=== PATIENT | male | born 1945 | race Caucasian/White ===

== ENCOUNTER → 2017-11-25 11:58 | Outpatient (CLI) | payer MEDICARE, SELFPAY ==
--- NOTE | 2017-11-25 12:12 | XR_ITS ---
XR chest 2V HISTORY: ITS.REASON: DYSPNEA ON EXERTION ORDERING PHYSICIAN: Braydon Edwards MD PATIENT AGE: 72 years COMPARISON: 10/23/2014 FINDINGS: The heart size is unremarkable. There is mild prominence of the aortic knob unchanged. No lobar consolidation or collapse. No evidence of pneumothorax. There is minimal left apical pleural thickening. IMPRESSION: No acute finding
== END ==
PROVIDERS: PCP Family Medicine; Visit Provider Family Medicine
DX: R06.09 Other forms of dyspnea (principal)
CPT/HCPCS: 71046

== ENCOUNTER → 2017-12-29 06:41 | Outpatient (CLI) | payer MEDICARE, SELFPAY ==
--- NOTE | 2017-12-29 06:46 | NM_ITS ---
CARDIOLITE SPECT MYOCARDIAL PERFUSION SCAN, REST AND STRESS: EXERCISE STRESS [facility] REVIEW QGS EF AND WALL MOTION EVALUATION: QPS - PERFUSION EVALUATION HISTORY: SOB DOSE: 10.53 mCi technetium 99m mibi intravenously at rest followed by 32.3 mCi technetium 99m mibi following the intravenous ministration of 0.4 mg of Lexiscan. Resting blood pressure is 147/80. Stress blood pressure 161/81. FINDINGS: Ejection fraction is calculated to be 66%. SPECT images: Uniform myocardial activity with both stress and rest gated images calculated ejection fraction of 68% with normal wall motion IMPRESSION: No scintigraphic evidence of Lexiscan-induced myocardial ischemia. Normal ejection fraction normal wall motion
--- NOTE | 2017-12-29 07:21 | HMH.ITSHM ---
TAMSULOSIN DIAXEPAM HYDROCODON
== END ==
PROVIDERS: PCP Family Medicine; Visit Provider Family Medicine
DX: R06.02 Shortness of breath (principal)
CPT/HCPCS: 78452; 93017; A9502; J2785

== ENCOUNTER 2018-09-21 11:47 | Outpatient (RCR) | payer MEDICARE, SELFPAY | END 2018-09-21 11:50 | disposition home or self-care (01) | LOC: PT 11:47 | PROVIDERS: Visit Provider Orthopaedic Surgery | DX: M25.561 Pain in right knee (principal) ==

== ENCOUNTER → 2018-10-01 09:27 | Outpatient (CLI) | payer MEDICARE, SELFPAY ==
--- NOTE | 2018-10-01 09:44 | XR_ITS ---
XR knee RT 4V HISTORY: ITS.REASON: RT KNEE PAIN ORDERING PHYSICIAN: Darlene Avila MD PATIENT AGE: 73 years COMPARISON: Right knee 09/19/2018 FINDINGS: Again noted is a semiopaque encircling structure with metallic pins posterior some type of both surrounding the lower portion leg which extends off the lower [id number]. There is spurring the tibial spines with mild joint space narrowing medially and laterally. The patella is intact and I see no definite effusion. No fracture or dislocation. No lytic or blastic change. Normal mineralization. No other significant findings IMPRESSION: Stable mild degenerative changes of the knee
== END ==
PROVIDERS: PCP Family Medicine; Visit Provider Orthopaedic Surgery
DX: M25.561 Pain in right knee (principal)
CPT/HCPCS: 73564

== ENCOUNTER 2019-02-17 13:10 | Outpatient (RCR) | payer MEDICARE, SELFPAY ==
--- NOTE | 2019-02-17 14:18 | HMH.PTOPEV ---
PT Outpatient Evaluation Rehab PT Outpatient Evaluation Start: 02/17/19 13:21 Freq: Status: Active Protocol: Document 02/17/19 14:05 PHOLASHELL (Rec: 02/17/19 14:18 PHORNE [id number]) Electronically Signed By Gary Leggett, PT 02/17/19 14:05 Outpatient Therapy Subjective History Subjective History Pt is 73 yowm who presents with c/o pain in the right knee x ~ 3-4 mos, worse with weight bearing, with insidious onset of symptoms. He reports no pain with sitting and no numbness. 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 He reports originally having full right side hemiparesis with the strength in his arm returning, but not the leg. he wears a custom built shoe with dorsiflexion assist AFO and ambulates with a quad cane. He has significant hip hiking during swing phase of gait to advance the right LE and knee hyperextension in stance phase of gait. He also has OA of the right knee per X-ray. He reports no other significant PMH. Chief Complaint Pain Symptom Type Sharp,Stabbing Symptoms Relieved By Rest/Positioning Symptoms Aggravated By Standing,Walking Prior Functional Limitations Driving,Standing,Walking Current Functional Limitations Driving,Standing,Walking Symptom Description Activity Dependent Level of pain today (0-10) 0 Pain scale - at its worst (0-10) 8 Hip/Knee Eval Gait Observation General Gait Pattern Observation Decrease Stride Lngth (R) Palpation Tenderness right Knee Palpation Finding Tenderness Knee Palpation Overall Comment posterior lateral knee at hams insertion MMT Hip Flexion Strength Grade 1 Trace Hip Abduction Strength Grade 1 Trace Hip Adduction Strength Grade 1 Trace Hip Extension Strength Grade 1 Trace Knee Extension Strength Grade 2- Poor- Knee Flexion Strength Grade 0 Zero ROM bilateral Hip ROM Reason Not Measured Within Functional Limits Knee ROM Reason Not Measured Within Functional Limits DTR Rt Patellar 2+ Lt Patellar
== END 2019-02-17 13:15 | disposition home or self-care (01) ==
LOC: PT 13:10
PROVIDERS: Visit Provider Orthopaedic Surgery
DX: M25.561 Pain in right knee (principal)
CPT/HCPCS: 97110; 97163

== ENCOUNTER → 2020-05-21 10:22 | Outpatient (CLI) | payer MEDICARE, SELFPAY ==
--- NOTE | 2020-05-21 10:28 | XR_ITS ---
PROCEDURE: XR KNEE RT 4V CLINICAL INDICATION: RT knee Pain and swelling COMPARISON: CR [id number] XR knee RT 3V from 09/19/2018 CR [id number] XR knee RT 4V from 10/01/2018 FINDINGS: No fracture or dislocation. No lytic or blastic change. There is normal mineralization. There are mild osteoarthritic changes of the lateral compartment Other findings:None. IMPRESSION: Mild osteoarthritis lateral compartment otherwise negative Dictated by: Jarrett Miranda MD 05/21/2020 13:00 Jarrett Miranda MD in [place] 05/21/2020 13:00
== END ==
PROVIDERS: PCP Family Medicine; Visit Provider Podiatrist
DX: M25.561 Pain in right knee (principal)
CPT/HCPCS: 73564

== ENCOUNTER 2023-10-30 11:15 | Outpatient (CLI) | payer MEDICARE, SELFPAY ==
--- NOTE | 2023-10-30 11:32 | ECG_ITS ---
APPROVED REPORT Exam: Resting ECG HR:84 bpm ECG Measurements Heart Rate 84 AXES ND 186 P 49 QRSd 85 QRS 71 QT 336 T 40 QTc 377 Conclusion SINUS RHYTHM LOW QRS VOLTAGE IN PRECORDIAL LEADS [QRS DEFLECTION < 1.0 mV IN CHEST LEADS] POSSIBLE INFERIOR MYOCARDIAL INFARCTION , PROBABLY OLD [30 ms Q WAVE IN II/aVF] BORDERLINE ECG UNCONFIRMED REPORT Electronically signed by : Braydon Benavides MD 10/31/2023 13:40:54
[2023-10-30 12:31] LABS: Basophils # 0.1 K/mm3 (0-0.2); Basophils % 0.6 % (0.1-2.0); Eosinophils # 0.1 K/mm3 (0.0-0.4); Eosinophils % 0.9 % (0.1-12.0); Hematocrit 46.9 % (42.0-52.0); Hemoglobin 15.5 g/dL (14.1-18.0); Lymphocytes # 2.8 K/mm3 (0.7-4.5); Lymphocytes % 18.2 % (10-50); Mean Corpuscular Hemoglobin 28.6 pg (27.0-31.2); Mean Corpuscular Volume 86.8 fl (80-94); Mean Platelet Volume 7.3 fl (7.4-10.4); Monocytes # 0.8 K/mm3 (0.1-1.0); Monocytes % 4.9 % (1.7-9.3); Neutrophils # 11.4 K/mm3 (1.8-7.8); Neutrophils % 75.4 % (37.0-80.0); Platelet Count 237 K/mm3 (142-424); Red Blood Count 5.41 M/mm3 (4.60-6.20); Red Cell Distribution Width 14.6 % (11.5-17.5); White Blood Count 15.1 K/mm3 (4.8-10.8)
[2023-10-30 12:44] LABS: MANUAL DIFFERENTIAL MANUAL DIFFERENTIAL (MANUAL DIFF)
[2023-10-30 13:15] LABS: Alanine Aminotransferase 18 U/L (12-78); Albumin/Globulin Ratio 1.3 (1.1-1.8); Alkaline Phosphatase 97 U/L (38-126); Anion Gap 12.1 mEq/L (5-15); Aspartate Amino Transferase 24 U/L (17-59); Bilirubin,Total 1.1 mg/dl (0.2-1.3); Blood Urea Nitrogen 15 mg/dl (9-20); Carbon Dioxide 28 mmol/L (22.0-30.0); Chloride 102 mmol/L (98-107); Estimated Glomerular Filt Rate 58 ml/min (>60); GFR (African American) 70 ML/MIN (>60); Glucose 123 mg/dl (74-100); Potassium 4.1 mmoL/L (3.5-5.1); Sodium 138 mmol/L (136-145)
[2023-10-30 13:39] LABS: Lymphocytes % 15 % (10-50); Monocytes % 10 % (2-9); Neutrophils % 74 % (42-76); Total Cells Counted 100
[2023-10-30 13:49] LABS: Platelet Estimate Normal; RBC Morphology Normal
== END 2023-10-30 23:59 ==
LOC: LAB 11:18
PROVIDERS: PCP Family Medicine; Visit Provider Ophthalmology
DX: Z01.818 Encounter for other preprocedural examination (principal)
CPT/HCPCS: 36415; 80053; 85007; 85025; 93005

== ENCOUNTER 2024-09-06 13:54 | Outpatient (CLI) | payer MEDICARE, SELFPAY ==
[2024-09-06 14:25] LABS: Basophils # 0.1 K/mm3 (0-0.2); Basophils % 0.8 % (0.1-2.0); Eosinophils # 0.1 K/mm3 (0.0-0.4); Hematocrit 48.7 % (42.0-52.0); Lymphocytes # 3.3 K/mm3 (0.7-4.5); Lymphocytes % 23.9 % (10-50); Mean Corpuscular Hemoglobin 28.8 pg (27.0-31.2); Mean Corpuscular Volume 87.4 fl (80-94); Mean Platelet Volume 7.2 fl (7.4-10.4); Monocytes # 0.7 K/mm3 (0.1-1.0); Monocytes % 5.3 % (1.7-9.3); Neutrophils # 9.5 K/mm3 (1.8-7.8); Platelet Count 252 K/mm3 (142-424); Red Blood Count 5.57 M/mm3 (4.60-6.20); Red Cell Distribution Width 15.2 % (11.5-17.5); White Blood Count 13.7 K/mm3 (4.8-10.8)
[2024-09-06 14:27] LABS: Chloride 103 mmol/L (98-107)
[2024-09-06 14:28] LABS: Potassium 3.6 mmoL/L (3.5-5.1); Sodium 139 mmol/L (136-145)
[2024-09-06 14:30] LABS: Blood Urea Nitrogen 16 mg/dl (9-20); Estimated Glomerular Filt Rate 49 ml/min (>60); GFR (African American) 59 ML/MIN (>60)
[2024-09-06 14:31] LABS: Anion Gap 11.6 mEq/L (5-15); Carbon Dioxide 28 mmol/L (22.0-30.0); Glucose 68 mg/dl (74-100)
--- NOTE | 2024-09-06 14:42 | ECG_ITS ---
APPROVED REPORT Exam: Resting ECG HR:83 bpm ECG Measurements Heart Rate 83 AXES QRSd 101 QRS 37 QT 357 T 19 QTc 397 Conclusion SUPRAVENTRICULAR RHYTHM ABNORMAL RHYTHM ECG UNCONFIRMED REPORT Electronically signed by : Braydon Benavides MD 09/07/2024 20:55:32
== END 2024-09-06 23:59 | disposition home or self-care (01) ==
LOC: PREOP 13:56
PROVIDERS: PCP Family Medicine; Visit Provider Surgery
DX: Z01.810 Encounter for preprocedural cardiovascular examination (principal); L98.9 Disorder of the skin and subcutaneous tissue, unspecified; I49.9 Cardiac arrhythmia, unspecified; R94.31 Abnormal electrocardiogram [ECG] [EKG]
CPT/HCPCS: 80048; 85025; 93005

== ENCOUNTER 2024-09-12 07:13 | Day surgery (SDC) | payer MEDICARE, SELFPAY ==
[2024-09-06 14:13] VITALS: BMI 27.3
[2024-09-12] VITALS (8 sets, daily range): BP systolic 115–132; BP diastolic 47–79; PULSE 61–89; RESP 16–18; TEMP 36.1–36.6; O2SAT 90–94
[2024-09-12] MEDS: 0.9 % SODIUM CHLORIDE 1000ML 1,000 ML 25 ML IV (07:27)
--- NOTE | 2024-09-12 07:51 | EXP.ANES.CKL ---
[facility] Disclaimer: The information contained in this section may have been updated after the patient was seen, as this information can be updated by other users. Medical History History of paralysis History of cerebral aneurysm History of cataract Anxiety Hip pain Enlarged prostate Surgical History History of shoulder surgery History of appendectomy History of hip replacement Family History Other No significant family history Social History Smoking Status: Never smoker alcohol intake: never substance use type: denies use current occupational status: retired Travel in the last 8 weeks: None household members: spouse housing: house [facility] Anesthesia Checklist Patient Identification Patient Identification: Arm Band, Family and Verbal (Name & ) Structural Data Admitted From: Home Planned Operative Procedure/s: Excision of skin lesion on back Consent for Planned Operative Procedure(s) Verified: Yes Verified Documents: Surgical Consent and History and Physical NPO Status Verified Time NPO: 21:00 Chart Verification Results Verified: CBC, BMP, ECG and Chest Xray Additional verifications Patient : No Anesthesia Reactions: No Hx Blood Transfusions: No Blood Transfusion Reaction: No Cardiovascular Assessment Heart Sounds: S1 & S2 Pulse Rhythm: Irregular Peripheral Edema: No Airway Assessment Mallampati Score:: Class II C-Spine Mobility Assessed: Yes (FROM) TMJ Mobility Assessed: Yes Dentition: Dentures-good fit (Nothing loose per pt.) Neurological Assessment Level of Consciousness: Awake, Alert, Appropriate and Follows Commands Hx Seizures: No Numbness or tingling in extremities: Yes (+Right Leg paralysis d/t cerebral aneurysm rupture 50 y/a) Anesthesia Plan Anesthesia Risk discussed: Yes Anesthesia Plan: Verified ASA Class: III Anesthesia Type: General
[2024-09-12] MEDS: LEVALBUTEROL 1.25MG/3ML NEB 1.25 MG IH (08:07)
[2024-09-12] MEDS: LIDOCAINE 1% 20ML MDV 20 ML (08:37)
[2024-09-12] MEDS: ROPIVACAINE 0.5% 30ML VIAL 150 MG (08:37)
--- NOTE | 2024-09-12 09:14 | P.OP_ITS ---
Date of procedure: 09/12/24 Pre-op Diagnosis:: Suspicious skin lesion right mid back Post-op Diagnosis:: Same Procedure performed:: Excision skin lesion, back, (excisional length 7 cm) with intermediate complexity closure. Surgeon:: Valentin Donohue MD SHEARING MACHINE FEEDER:: Alcides Peres Anesthesia: LMA Estimated blood loss (mL): 15 Clinical Note:: Patient is an 79-year-old male who was referred for skin lesion on the back by Dr. Braydon Edwards. Patient stated the area had been present for about a year. He attributed it to striking the area on his lift chair button. He has to keep a Band-Aid in place. He has some drainage. I initially saw him in the office on 08/09/2024 and had a concern for possible skin cancer. I was considering performing punch biopsy for tissue diagnosis to tailor definitive management prior to excisional biopsy. However when the patient presented back to the office he had somewhat of a fleshy lesion which bled easily. Given its propensity for bleeding plan was made to proceed directly with excisional biopsy with the understanding that he could require additional surgical intervention pending the final pathology. Operative findings:: Irregular soft friable skin lesion. He did have some abnormal skin at the inferior margin slightly to the right of the midline. Operative note:: Consent was obtained patient was taken the operating room. He was positioned in supine position. General anesthesia was induced via LMA. He was repositioned in the right lateral position. The area was prepped and draped in the standard surgical fashion. He had a raised fleshy friable lesion. There was some surrounding skin changes. Lesion was marked with skin marker for planned elliptical incision with minimally grossly negative margins. Incision was made. Full-thickness incision was made through the dermis using cautery. The lesion was dissected free from the underlying subcutaneous tissues using electrocautery. Lesion was marked with a suture for orientation. Short suture was placed superiorly and a long suture was placed right lateral. Hemostasis was achieved with electrocautery. Local anesthetic was infiltrated. Inspection revealed some mildly nodular somewhat pigmented skin at the inferior slightly to the right portion of the incision. This was felt to be potentially involved margin. However, without a tissue diagnosis plan was not made to pursue additional excision at this time. Dermis was reapproximated with interrupted 2- 0 Vicryl. Skin was closed with interrupted 3-0 nylon. Clean dry sterile dressing was applied. Please note. If final pathology returns as skin malignancy could require additional excision as there was evidence of some skin changes inferior somewhat to the right portion of the wound. Condition: stable Disposition: PACU Complications:: None immediately apparent
--- NOTE | 2024-09-12 09:31 | EXP.ANES.I ---
[facility] Anesthesia Record Part I Anesthesia Record I Intake, IV Amount: 350 Hydration: Adequate Estimated blood loss (mL): 4 Urine output (mL): 0 Blood Products used (#): none Blood Pressure: 132/79 SaO2: 94 Pulse Rate: 76 Airway Patency: Patent Respiratory Rate: 16 Temperature: 97 F Patient is:: Drowsy and Stable
--- NOTE | 2024-09-19 10:33 | EXP.ANES.II ---
[facility] Anesthesia Record Part II Anesthesia Record Part II Discharge Time: 09:53 Destination: Surgical Day Care (OP Surgery) PACU nurse assessment reviewed?: Yes Patient Condition:: Good Anesthesia Complications:: None Swallowing reflex intact?: Yes Airway Patency: Patent Cyanosis?: No Blood Pressure: 121/77 SaO2: 94 Respiratory Rate: 18 Pulse Rate: 68 Temperature: 97 F Mental Status: Alert & Oriented Pain level:: 0 Nausea and/or vomitting:: None Intake, IV Amount: 0 Hydration: Adequate
[2024-09-19 10:34] VITALS: BP 121/77; PULSE 68; RESP 18; TEMP 36.1; O2SAT 94
== END 2024-09-12 10:23 | disposition home or self-care (01) ==
PROVIDERS: PCP Family Medicine; Visit Provider Surgery
PROC: (CPT 11604; principal; 2024-09-12 08:30)
DX: C44.519 Basal cell carcinoma of skin of other part of trunk (principal)
CPT/HCPCS: 11604; 12032; 96374; J1100; J2405; J3010; J7030; J7614